=== PATIENT | female | born 1980 | race Two or more races ===

== ENCOUNTER 2018-10-18 22:20 | Emergency (ER) | payer SELFPAY ==
[~2018-10-18] VITALS: Ht 160 cm; Wt 55.0 kg
[2018-10-19] MEDS ORDERED: KETOROLAC 15MG/ML VIAL IM ONE (00:45)
[2018-10-19] MEDS ORDERED: DIPHENHYDRAMINE 50MG CAPSULE PO ONE (00:45)
[2018-10-19] MEDS ORDERED: METOCLOPRAMIDE HCL 10MG TABLET PO ONE (00:45)
[2018-10-19 01:39] VITALS: BP 157/79
[2018-10-19] MEDS ORDERED: IBUPROFEN 800MG TABLET PO ONE (01:45)
== END 2018-10-19 03:09 | disposition left against medical advice (07) ==
LOC: ER 22:20
DX: R51 Headache (principal); R03.0 Elevated blood-pressure reading, without diagnosis of hypertension
CPT/HCPCS: 81025; 99284; J1885; J8597; Q0163; Z7610